=== PATIENT | female | born 1975 | race Caucasian/White ===

== ENCOUNTER 2023-11-05 21:23 | Emergency (ER) | payer BC, SELFPAY ==
[2023-11-05 21:25] VITALS: BP 134/76
--- NOTE | 2023-11-05 22:27 | ED.MUSCINJ ---
HPI-Injury
General
Chief Complaint: Musculo-Skeletal Complaint
Source: patient
Time Seen by Provider: 11/05/23 21:51
History of Present Illness-Injury
Initial Injury comments:
48yoF with with no significant past medical history presenting for evaluation of a right knee injury. Patient was playing soccer with children this evening. Patient states she went to kick a soccer ball when she planted her right foot. She felt
her right knee move laterally and then felt a pop. Patient has been having ongoing right knee pain since then. She did apply ice and ibuprofen with improvement in her pain. She denies any paresthesias. No prior surgeries to the right knee.
Phy Exam
General Physical Exam
General Presentation: well appearing and no apparent distress
General age: appears stated age
General Skin: warm and dry
General Habitus: normal
General Mental: alert
ENT Exam
ENT Exam: normocephalic
Pulmonary Exam
Pulmonary Exam: no respiratory distress
[place] Coma Scale
Eye Opening: Spontaneous
Verbal Response: Oriented
Motor Response: Obeys Commands
GCS Total Score: 15
Musculoskeletal Exam
Musculoskeletal Exam: other (R knee: No deformity or effusion noted. No tenderness to palpation of the joint. ROM of knee intact. 2+ DP pulse and sensation intact. )
Skin Exam
Skin Exam: normal color and warm/dry
Psychiatric Exam
Psychiatric Exam: normal mood/affect
Injury Course
Orders/Labs/Results
Orders:
Orders
11/05/23 21:29
Knee, Right 4 or More Views [CR Knee- Right 4 Or More View*] Urgent
Comment:
Reason For Exam: 'KNEE CAP MOVED AND POPPED BACK IN' PLAYING SOCCER
11/05/23 22:27
Knee Immobilizer Right-Treatme ONCE
MDM/Problems Addressed
Differential Diagnosis Includes:
48yoF here with R knee pain after an injury playing soccer this evening. [place] a lateral pop in her knee. VSS. No deformity or effusion noted on exam. ROM intact. RLE is neurovascularly intact. Differential diagnosis includes but is not limited to:
Ligamentous injury, meniscus injury, patellar dislocation, fracture, doubt true knee dislocation
X-rays obtained which are negative for fractures and effusion. Patient was placed in a knee immobilizer. Supportive care discussed. Advised follow-up with orthopedics for further care.
*Critical Care Note
Total Time (30-74mins, 75-104mins- exclusive of procedures): Not Applicable
ED Attending Note
-
Portions of this chart may have been created with voice recognition software.� Occasional wrong word or��sound alike� substitutions may have occurred due to the inherent limitations of voice recognition software.
Discharge Plan
Departure
Patient Disposition: Home (Routine Discharge)
Date of Disposition: 11/05/23
Time of Disposition: 22:28
Patient with high blood pressure during this ER visit?: No
Discharge Problem:
Injury of right knee
Instructions: Knee Sprain (DC)
Referrals:
Perla Isaac DO [Family Provider] -
Rosalio Harkins MD [Non-Admitting Privileges] -
Activity Restrictions/Additional Instructions:
Rest, ice, compress, and elevate your knee. Use immobilizer for support. Take Tylenol and ibuprofen as needed for pain.
Please call tomorrow to schedule a follow-up with orthopedics.
Interventions
Interventions:
*Risk Screen - Suicide Last Done: 11/05/23 21:25
*General Assessment Last Done: 11/05/23 23:02
*Neglect/Abuse Screening Last Done: 11/05/23 21:25
ED- Fall Risk Assessment Last Done: 11/05/23 23:02
*ED COVID-19 Vaccine History Last Done: 11/05/23 23:02
*Nursing Disposition Last Done: 11/05/23 23:02
ED-Musculoskeletal Assessment Last Done: 11/05/23 22:59
Discharge Date and Time
Discharge Date/Time: 11/05/23 23:03
Print Language: VENEZUEL[place]
== END 2023-11-05 23:03 | disposition home or self-care (01) ==
LOC: EMR 21:23
PROVIDERS: EMERGENCY PHYSICIAN Emergency Medicine; FAMILY PHYSICIAN Family Medicine
DX: S89.91XA Unspecified injury of right lower leg, initial encounter (principal); X50.1XXA Overexertion from prolonged static or awkward postures, initial encounter; Y93.66 Activity, soccer
CPT/HCPCS: 29505; 99283; 73564

== ENCOUNTER 2024-01-28 19:11 | Emergency (ER) | payer BC, SELFPAY ==
[2024-01-28 19:13] VITALS: BP 143/84
--- NOTE | 2024-01-28 20:51 | ED.GENMED ---
History of Present Illness
General
Chief Complaint: DVT/Possible Blood Clot
Source: patient
Exam Limitations: none
Time Seen by Provider: 01/28/24 19:35
Nursing documentation reviewed up to this point in time: agreed with
History of Present Illness
History of Present Illness:
48-year-old female presenting to the emergency department today with concerns of worsening swelling to the right calf over the past day or so had ACL reconstruction 1 month ago. No complications otherwise. Thinks he has been overdoing physical
activity over the past few days. Denies any chest pain shortness of breath no history of blood clots
Review of Systems
Review of Systems
Allergies reviewed?: Yes
All Other Systems: ROS reviewed and negative except as documented in HPI and ROS
Phy Exam
Physical Exam
Physical Exam:
GENERAL: Alert , in no apparent distress
EYE: pupils equal and reactive
NECK: Supple, no significant adenopathy.
ENT: o/p clr, mmm.
CARDIAC: Regular rate and rhythm .
LUNGS: Clear breath sounds bilaterally, no acute respiratory distress, no wheezes/rales/rhonchi
ABDOMEN: Soft, without focal tenderness, no r/g, no cvat
NEUROLOGICAL: Alert and oriented, no focal neuro deficits
SKIN: Warm and dry, skin intact.
MUSCULOSKELETAL: Some swelling discomfort to the right gastrocnemius otherwise some trace pitting edema to the right [place] dorsalis pedis and posterior tibialis pulses are normal well perfused.
PSYCH: Normal and appropriate interaction.
Course
Orders/Labs/Results
Orders:
Orders
01/28/24 19:21
Periph Venous Lwr Ext Rt US [US Periph Venous LOWER Ext RT] Urgent
Comment:
Reason For Exam: pain/swelling
Vital Signs
Initial and Last Documented VS:
Initial Vital Signs
Temp Pulse Resp BP Pulse Ox
98.3 F 87 16 143/84 98
01/28/24 19:13 01/28/24 19:13 01/28/24 19:13 01/28/24 19:13 01/28/24 19:13
Last Documented Vital Signs
Temp Pulse Resp BP Pulse Ox
98.3 F 87 16 143/84 98
01/28/24 19:13 01/28/24 19:13 01/28/24 19:13 01/28/24 19:13 01/28/24 19:13
MDM/Problems Addressed
MDM/Problems Addressed:
48-year-old female presenting to the emergency department today with concerns of swelling to the right calf since yesterday. Think she may have injured this when overdoing physical activity recently. Ultrasound was performed without signs of blood
clot neurovascular intact patient was found have a hematoma to the Muscle indicating likely injury to the Muscle. Plan for conservative treatment. Return precautions given.
*Critical Care Note
Total Time (30-74mins, 75-104mins- exclusive of procedures): Not Applicable
ED Attending Note
-
Portions of this chart may have been created with voice recognition software.� Occasional wrong word or��sound alike� substitutions may have occurred due to the inherent limitations of voice recognition software.
Discharge Plan
Departure
Patient Disposition: Home (Routine Discharge)
Date of Disposition: 01/28/24
Time of Disposition: 20:51
Patient with high blood pressure during this ER visit?: No
Condition: Good
Covid-19: Not Applicable
Discharge Problem:
Hematoma of muscle
Instructions: Muscle Strain ED
Activity Restrictions/Additional Instructions:
You came to the emergency department today with concerns of Discomfort. Here you had an ultrasound did not show DVT but did show hematoma of the calf muscle. Please rest and elevate and lightly exercise over time as this will hopefully improve on
its own. Return to the emergency department any worsening, new or concerning symptoms.
Interventions
Interventions:
*Risk Screen - Suicide Last Done: 01/28/24 19:13
*General Assessment Last Done: 01/28/24 19:13
*Neglect/Abuse Screening Last Done: 01/28/24 19:13
ED- Fall Risk Assessment Last Done: 01/28/24 20:48
*ED COVID-19 Vaccine History Last Done: 01/28/24 19:13
*Nursing Disposition Last Done: 01/28/24 20:48
ED- Cardiac Assessment Last Done: 01/28/24 20:48
ED- Pulmonary Assessment Last Done: 01/28/24 20:48
ED-Peripheral Vascular Assessment Last Done: 01/28/24 20:11
ED-Skin Assessment Last Done: 01/28/24 20:48
Discharge Date and Time
Discharge Date/Time: 01/28/24 20:57
Print Language: UPPER [place]ORBI[place]
== END 2024-01-28 20:57 | disposition home or self-care (01) ==
LOC: EMR 19:11
PROVIDERS: EMERGENCY PHYSICIAN Emergency Medicine; FAMILY PHYSICIAN Family Medicine
DX: S80.12XA Contusion of left lower leg, initial encounter (principal); X58.XXXA Exposure to other specified factors, initial encounter
CPT/HCPCS: 99284; 93971